=== PATIENT | male | born 1935 | race Hispanic/Latino ===

== ENCOUNTER 2016-11-01 10:27 | Outpatient (CLI) | payer MEDICARE, OTHER ==
--- NOTE | 2016-11-02 08:07 | Vascular Lab Report ---
LOWER EXTREMITY VENOUS DUPLEX: REASON FOR EXAM: Pain of the lower extremities. COMMENTS ON THE RIGHT: All veins visualized are freely compressible without evidence of internal echogenicity. Flow is spontaneous and phasic throughout. COMMENTS ON THE LEFT: All veins visualized are freely compressible without evidence of internal echogenicity. Flow is spontaneous and phasic throughout. IMPRESSION: No evidence of acute or chronic deep venous thrombosis in either lower extremity.
== END 2016-11-01 10:28 | disposition home or self-care (01) ==
LOC: VAS 10:27
PROVIDERS: ATTEND Specialist
DX: I73.9 Peripheral vascular disease, unspecified (principal)
CPT/HCPCS: 93970

== ENCOUNTER 2019-09-26 14:12 | Outpatient (CLI) | payer MEDICARE, OTHER ==
--- NOTE | 2019-09-26 16:09 | XRay Report ---
ABDOMEN 3 views, 09/26/2019 INDICATION: DIARRHEA FINDINGS: The bowel gas pattern is within normal limits. There are no dilated loops of large or small bowel. No free air is identified. No radiopaque urinary tract calculi are seen. There is mild linear atelectas is or scar in the left lung base. Surgical clips are noted in the right upper quadrant characteristic of prior cholecystectomy. IMPRESSION: No acute findings. Signer Name: Ashu Sinclair MD Signed: 09/26/2019 4:05 PM Workstation Name: [id number]
== END 2019-09-26 14:13 | disposition home or self-care (01) ==
LOC: SPVIMAG 14:12
PROVIDERS: ATTEND Internal Medicine
DX: R19.7 Diarrhea, unspecified (principal); J98.11 Atelectasis
CPT/HCPCS: 74022

== ENCOUNTER 2021-03-26 12:26 | Inpatient (IN) | payer MEDICARE, OTHER ==
[~2021-03-26 12:26] MED LIST: HEPARIN 10,000 UNITS/10 ML VIAL ONE
[2021-03-26] MEDS ORDERED: SODIUM CHLORIDE 0.9% 1000 ML 1,000 ML IV ONE ×3 (12:29→17:15)
[2021-03-26] MEDS ORDERED: ASPIRIN 81 MG TAB CHEW PO ONE (12:29)
[2021-03-26] MEDS ORDERED: MIDAZOLAM 2 MG/2 ML INJ ONE (12:35)
[2021-03-26] MEDS ORDERED: HEPARIN 10,000 UNITS/10 ML VIAL ONE (12:35)
[2021-03-26] MEDS ORDERED: HEPARIN/NS 5000 UNIT/500ML 0 ML IR ONE (12:35)
[2021-03-26] MEDS ORDERED: VERAPAMIL 5 MG/2 ML INJ ONE (12:36)
[2021-03-26] MEDS ORDERED: LIDOCAINE (2%) 20 MG/1 ML VIAL 20 ML MDV INFILTRATI ONE (12:36)
[2021-03-26] MEDS ORDERED: fentaNYL 100 MCG/2 ML INJ ONE (12:36)
[2021-03-26] MEDS ORDERED: NITROGLYCERIN SYRINGE 0 ML ONE (12:36)
[2021-03-26] MEDS ORDERED: ACETAMINOPHEN 325 MG TAB PO ONE (12:41)
[2021-03-26] MEDS ORDERED: NITROGLYCERIN 2% OINT 1 GM TP ONE (12:41)
[2021-03-26 12:48] LABS: Basophils # (Auto) 0.1 K/mm3 (0.0-0.1); Basophils % (Auto) 0.6 % (0.0-1.8); Eosinophils # (Auto) 0.1 K/mm3 (0.0-0.4); Eosinophils % (Auto) 0.6 % (0.0-4.3); Hematocrit 43.4 % (35.5-45.6); Hemoglobin 14.1 gm/dl (11.8-15.2); Lymphocytes # (Auto) 2.2 K/mm3 (1.2-5.4); Lymphocytes % (Auto) 11.8 % (13.4-35.0); Mean Corpuscular HGB Conc 33 % (32-34); Mean Corpuscular Volume 86 fl (84-94); Monocytes # (Auto) 1.6 K/mm3 (0.0-0.8); Monocytes % (Auto) 8.3 % (0.0-7.3); Platelet Count 263 K/mm3 (140-440); Red Blood Count 5.07 M/mm3 (3.65-5.03); Red Cell Distribution Width 16.6 % (13.2-15.2)
[2021-03-26] MEDS ORDERED: HEPARIN 10,000 UNITS/10 ML VIAL IV ONE (13:00)
--- NOTE | 2021-03-26 13:07 | XRay Report ---
CHEST 1 VIEW INDICATION: chest pain. COMPARISON: Abdominal series 09/26/2019 FINDINGS: Support devices: Pacemaker device remains in similar position. Heart: There is borderline to mild cardiomegaly which appears to be new. Lungs/Pleura: No acute air space or interstitial disease. No pneumothorax. Additional findings: None. IMPRESSION: Borderline heart size. Lungs clear. Signer Name: Tima Gleason Jr, MD Signed: 03/26/2021 1:03 PM Workstation Name: [id number]
[2021-03-26 13:09] LABS: INR 1.2 (0.87-1.13)
[2021-03-26 13:10] LABS: Partial Thromboplastin Time 34.7 Sec. (24.2-36.6)
[2021-03-26 13:15] LABS: BUN/Creatinine Ratio 15; Blood Urea Nitrogen 15 mg/dL (9-20); Calcium 8.4 mg/dL (8.4-10.2)
[2021-03-26 13:16] LABS: Hemolysis Index 16
[2021-03-26] MEDS ORDERED: KETOROLAC 30 MG/1 ML INJ IV ONE (13:23)
[2021-03-26] MEDS ORDERED: FAMOTIDINE 20 MG/2 ML INJ IV ONE (13:23)
--- NOTE | 2021-03-26 15:00 | Cat Scan Report ---
CTA CHEST WITH CONTRAST INDICATION / CLINICAL INFORMATION: elevated ddimer, chest pain OMNI 350 100 ML. TECHNIQUE: Axial CT images were obtained through the chest after injection of IV contrast. 3 plane KS P and/or 3D reconstructions were produced. All CT scans at this location are performed using CT dose reduction for ALARA by means of automated exposure control. COMPARISON: None available. FINDINGS: PULMONARY ARTERIES: No pulmonary emboli. The main pulmonary artery is dilated at 3.1 cm. THORACIC AORTA: Mild atherosclerotic calcification without acute abnormality. HEART: Cardiomegaly. There is reflux of contrast into the intrahepatic IVC and hepatic veins. Pacemak er leads are present. CORONARY ARTERY CALCIFICATION: Moderate. MEDIASTINUM / TAMIE: No significant abnormality. PLEURA: No pleural effusion. No pneumothorax. LUNGS: There is mild bronchiectasis and peribronchial thickening in the lower lobes. Bibasilar ground glass opacities. ADDITIONAL FINDINGS: None. UPPER ABDOMEN: Cholecystectomy changes. Bilateral renal cysts. Fatty atrophy of the pancreas. SKELETAL STRUCTURES: No significant osseous abnormality. IMPRESSION: 1. No CT evidence for pulmonary embolism. 2. Dilated main pulmonary artery with reflux of contrast into the intrahepatic IVC and hepatic veins is suggestive of right heart failure. 3. Bibasilar groundglass opacities with peribronchial thickening and bronchiectasis suggestive of chr onic aspiration-related changes. Signer Name: Marshall Brown MD Signed: 03/26/2021 2:56 PM Workstation Name: [email or web address]
[2021-03-26] MEDS ORDERED: AZITHROMYCIN/NS 500 MG/250 ML 500 MG/250 ML BAG IV ONE (15:07)
[2021-03-26] MEDS ORDERED: cefTRIAXone/NS 2 GM/100 ML 2 GM/100 ML BAG IV ONE (15:07)
--- NOTE | 2021-03-26 15:59 | Emergency Department Report ---
ED Chest Pain HPI - General Chief Complaint: Chest Pain Stated Complaint: STEMI Time Seen by Provider: 03/26/21 12:27 Source: patient Mode of arrival: Stretcher Limitations: No Limitations - History of Present Illness Initial Comments: Patient is a 85-year-old male with a past medical history of coronary disease status post several stents and pacemaker placement who is presenting with chest pain. Pain is apparently started approximately 1100 this morning. Patient states the pain is gradually worsened to the point where on arrival paramedics stated all he will do that now is just yell and pain. Patient has probable dementia and is a poor historian. At times throughout his stay he will stop yelling and communicate with us. He states that he feels some nausea but has not vomited mild shortness of breath. Pain has been constant this morning. Is unknown whether the patient has had cough congestion fevers chills or if the patient has received the COVID-19 vaccine. Severity scale (0 -10): 0 - Related Data Home Medications Medication Instructions Recorded Confirmed Last Taken Prednisone [predniSONE 5 mg (6-Day 5 mg PO QDAY 04/18/13 04/18/13 05/09/13 09:00 Pack, 21 Tabs)] allopurinoL [Zyloprim] 100 mg PO QDAY 04/18/13 04/18/13 05/09/13 09:00 Cholecalciferol (Vitamin D3) 1,000 unit PO DAILY 05/09/13 05/09/13 05/09/13 09:00 [Vitamin D] Multivitamin [Multi Vitamin Daily] 05/09/13 05/09/13 05/09/13 09:00 [place]-3 Fatty Acids/Fish Oil [Fish 05/09/13 05/09/13 05/09/13 09:00 Oil] carvediloL [Coreg] 6.25 mg PO BID 05/09/13 05/09/13 05/09/13 09:00 6.25 Previous Rx's Medication Instructions Recorded Last Taken Type Aspirin EC [Halfprin EC] 325 mg PO QDAY 30 Days tablet. 04/21/13 05/09/13 09:00 Rx Clopidogrel [Plavix] 75 mg PO QDAY 30 Days tablet 04/21/13 05/09/13 09:00 Rx lisinopriL [Zestril TAB] 10 mg PO QDAY #30 tablet 04/24/13 05/09/13 09:00 Rx Allergies Allergy/AdvReac Type Severity Reaction Status Date / Time lactose Allergy Nausea Unverified 11/01/16 10:29 Ryxejmf-Ict-Nha Reductase Allergy Unknown Unverified 05/09/13 12:36 Inhibitor Heart Score - HEART Score History: Moderately suspicious EKG: Significant ST-depression Age: > 65 Risk factors: > 3 risk factors or hx of atherosclerotic disease Troponin: < normal limit HEART Score: 7 - EKG Read Time Time EKG Completed: 12:32 EKG Read Time: 12:35 ED Review of Systems ROS: Stated complaint: STEMI Other details as noted in HPI Comment: All other systems reviewed and negative ED Past Medical Hx - Past Medical History Hx Hypertension: Yes (2003) Hx Heart Attack/AMI: Yes Hx Diabetes: No Hx Arthritis: Yes Hx Asthma: No Hx COPD: No Additional medical history: PMR, stent (2003), gout - Surgical History Hx Coronary Stent: Yes (2003) Hx Cholecystectomy: Yes Hx Appendectomy: Yes Additional Surgical History: tonsillectomy - Social History Smoking Status: Former Smoker - Medications Home Medications: Home Medications Medication Instructions Recorded Confirmed Last Taken Type Prednisone [predniSONE 5 mg (6-Day 5 mg PO QDAY 04/18/13 04/18/13 05/09/13 09:00 History Pack, 21 Tabs)] allopurinoL [Zyloprim] 100 mg PO QDAY 04/18/13 04/18/13 05/09/13 09:00 History Aspirin EC [Halfprin EC] 325 mg PO QDAY 30 Days tablet. 04/21/13 05/09/13 09:00 Rx Clopidogrel [Plavix] 75 mg PO QDAY 30 Days tablet 04/21/13 05/09/13 09:00 Rx lisinopriL [Zestril TAB] 10 mg PO QDAY #30 tablet 04/24/13 05/09/13 09:00 Rx Cholecalciferol (Vitamin D3) 1,000 unit PO DAILY 05/09/13 05/09/13 05/09/13 09:00 History [Vitamin D] Multivitamin [Multi Vitamin Daily] 05/09/13 05/09/13 05/09/13 09:00 History [place]-3 Fatty Acids/Fish Oil [Fish 05/09/13 05/09/13 05/09/13 09:00 History Oil] carvediloL [Coreg] 6.25 mg PO BID 05/09/13 05/09/13 05/09/13 09:00 History 6.25 ED Physical Exam - General Limitations: No Limitations General appearance: alert, in no apparent distress - Head Head exam: Present: atraumatic, normocephalic - Eye Eye exam: Present: normal appearance, PERRL, EOMI - ENT ENT exam: Present: mucous membranes moist - Neck Neck exam: Present: normal inspection - Respiratory Respiratory exam: Present: normal lung sounds bilaterally. Absent: respiratory distress, wheezes, rales, rhonchi - Cardiovascular Cardiovascular Exam: Present: regular rate, normal rhythm, normal heart sounds. Absent: systolic murmur, diastolic murmur, rubs, gallop - GI/Abdominal GI/Abdominal exam: Present: soft, normal bowel sounds. Absent: distended, tenderness, guarding, rebound, rigid - Rectal Rectal exam: Present: deferred - Extremities Exam Extremities exam: Present: normal inspection - Back Exam Back exam: Present: normal inspection - Neurological Exam Neurological exam: Present: alert, altered - Psychiatric Psychiatric exam: Present: normal affect, normal mood - Skin Skin exam: Present: warm, dry, intact, normal color. Absent: rash ED Course Vital Signs 03/26/21 03/26/21 03/26/21 12:36 12:45 13:00 Pulse Rate 72 Respiratory 11 L Rate Blood Pressure 107/67 107/67 O2 Sat by Pulse 98 98 97 Oximetry 03/26/21 03/26/21 03/26/21 13:15 13:30 13:36 Pulse Rate 70 71 76 Respiratory 27 H 18 11 L Rate Blood Pressure 117/67 117/67 114/70 O2 Sat by Pulse 98 98 99 Oximetry 03/26/21 03/26/21 03/26/21 13:38 13:40 13:42 Pulse Rate 78 74 70 Respiratory 12 10 L 11 L Rate Blood Pressure 114/70 114/70 114/70 O2 Sat by Pulse 98 99 99 Oximetry 03/26/21 03/26/21 03/26/21 13:44 13:46 13:48 Pulse Rate 71 72 70 Respiratory 14 11 L 8 L Rate Blood Pressure 114/70 114/70 97/55 O2 Sat by Pulse 99 100 98 Oximetry 03/26/21 03/26/21 03/26/21 13:50 13:52 13:54 Pulse Rate 70 75 70 Respiratory 12 15 9 L Rate Blood Pressure 97/55 97/55 97/55 O2 Sat by Pulse 96 96 97 Oximetry 03/26/21 03/26/21 03/26/21 13:56 13:57 13:58 Pulse Rate 70 70 70 Respiratory 16 12 10 L Rate Blood Pressure 97/55 102/60 102/60 O2 Sat by Pulse 96 98 99 Oximetry 03/26/21 03/26/21 03/26/21 14:00 14:02 14:04 Pulse Rate 70 70 71 Respiratory 10 L 12 14 Rate Blood Pressure 102/60 103/66 103/66 O2 Sat by Pulse 98 99 Oximetry 03/26/21 03/26/21 03/26/21 14:24 14:26 14:28 Pulse Rate 78 73 71 Respiratory 19 15 26 H Rate Blood Pressure 103/66 103/66 103/66 O2 Sat by Pulse 96 99 100 Oximetry 03/26/21 03/26/21 03/26/21 14:30 14:32 14:34 Pulse Rate 73 70 70 Respiratory 22 32 H 27 H Rate Blood Pressure 103/66 81/50 81/50 O2 Sat by Pulse 100 100 100 Oximetry 03/26/21 03/26/21 03/26/21 14:35 14:39 14:41 Pulse Rate 70 70 70 Respiratory 19 28 H 14 Rate Blood Pressure 114/70 96/62 96/62 O2 Sat by Pulse 97 100 99 Oximetry 03/26/21 03/26/21 03/26/21 14:43 14:45 14:47 Pulse Rate 70 70 70 Respiratory 26 H 14 12 Rate Blood Pressure 96/62 81/50 81/50 O2 Sat by Pulse 97 99 97 Oximetry 03/26/21 03/26/21 03/26/21 14:49 14:51 14:53 Pulse Rate 70 70 70 Respiratory 13 18 15 Rate Blood Pressure 81/50 81/50 97/61 O2 Sat by Pulse 100 87 99 Oximetry 03/26/21 03/26/21 03/26/21 14:55 14:57 14:59 Pulse Rate 70 70 68 Respiratory 15 19 9 L Rate Blood Pressure 97/61 97/61 97/61 O2 Sat by Pulse 98 99 Oximetry 03/26/21 03/26/21 03/26/21 15:01 15:03 15:05 Pulse Rate 70 70 70 Respiratory 6 L 8 L 24 Rate Blood Pressure 97/61 97/61 97/61 O2 Sat by Pulse 100 100 99 Oximetry 03/26/21 03/26/21 03/26/21 15:07 15:08 15:09 Pulse Rate 70 70 70 Respiratory 15 26 H 22 Rate Blood Pressure 97/61 93/60 93/60 O2 Sat by Pulse 99 100 100 Oximetry 03/26/21 03/26/21 03/26/21 15:11 15:13 15:14 Pulse Rate 70 70 70 Respiratory 23 12 14 Rate Blood Pressure 93/60 93/60 102/67 O2 Sat by Pulse 100 100 99 Oximetry RACHEL score - Rachel Score Age > 65: (1) Yes Aspirin use within the Past 7 Days: (1) Yes 3 or more CAD Risk Factors: (1) Yes 2 or more Angina events in past 24 hrs: (1) Yes Known CAD with more than 50% Stenosis: (1) Yes Elevated Cardiac Markers: (0) No ST Deviation Greater than 0.5mm: (1) Yes RACHEL Score: 6 ED Medical Decision Making - Lab Data Result diagrams: 03/26/21 12:29 03/26/21 15:42 Lab Results 03/26/21 03/26/21 03/26/21 Range/Units 12:29 12:29 12:29 WBC 18.6 H (4.5-11.0) K/mm3 RBC 5.07 H (3.65-5.03) M/mm3 Hgb 14.1 (11.8-15.2) gm/dl Hct 43.4 (35.5-45.6) % MCV 86 (84-94) fl MCH 28 (28-32) pg MCHC 33 (32-34) % RDW 16.6 H (13.2-15.2) % Plt Count 263 (140-440) K/mm3 Lymph % (Auto) 11.8 L (13.4-35.0) % [place] % (Auto) 8.3 H (0.0-7.3) % Eos % (Auto) 0.6 (0.0-4.3) % Baso % (Auto) 0.6 (0.0-1.8) % Lymph # (Auto) 2.2 (1.2-5.4) K/mm3 [place] # (Auto) 1.6 H (0.0-0.8) K/mm3 Eos # (Auto) 0.1 (0.0-0.4) K/mm3 Baso # (Auto) 0.1 (0.0-0.1) K/mm3 Seg Neutrophils % 78.7 H (40.0-70.0) % Seg Neutrophils # 14.7 H (1.8-7.7) K/mm3 PT 15.8 H (12.2-14.9) Sec. INR 1.20 H (0.87-1.13) APTT 34.7 (24.2-36.6) Sec. D-Dimer 560.90 H (0-234) ng/mlDDU Sodium 140 (137-145) mmol/L Potassium 3.5 L (3.6-5.0) mmol/L Chloride 107.9 H (98-107) mmol/L Carbon Dioxide 16 L (22-30) mmol/L Anion Gap 20 mmol/L BUN 15 (9-20) mg/dL Creatinine 1.0 (0.8-1.3) mg/dL Estimated GFR > 60 ml/min BUN/Creatinine Ratio 15 % Glucose 167 H (75-100) mg/dL Calcium 8.4 (8.4-10.2) mg/dL Total Creatine Kinase < 7 L (55-170) units/L CK-MB (CK-2) 3.0 (0.0-4.0) ng/mL CK-MB (CK-2) Rel Index 0.0 (0-4) Troponin T 0.024 (0.00-0.029) ng/mL Blood Type Antibody Screen 03/26/21 Range/Units 12:34 WBC (4.5-11.0) K/mm3 RBC (3.65-5.03) M/mm3 Hgb (11.8-15.2) gm/dl Hct (35.5-45.6) % MCV (84-94) fl MCH (28-32) pg MCHC (32-34) % RDW (13.2-15.2) % Plt Count (140-440) K/mm3 Lymph % (Auto) (13.4-35.0) % [place] % (Auto) (0.0-7.3) % Eos % (Auto) (0.0-4.3) % Baso % (Auto) (0.0-1.8) % Lymph # (Auto) (1.2-5.4) K/mm3 [place] # (Auto) (0.0-0.8) K/mm3 Eos # (Auto) (0.0-0.4) K/mm3 Baso # (Auto) (0.0-0.1) K/mm3 Seg Neutrophils % (40.0-70.0) % Seg Neutrophils # (1.8-7.7) K/mm3 PT (12.2-14.9) Sec. INR (0.87-1.13) APTT (24.2-36.6) Sec. D-Dimer (0-234) ng/mlDDU Sodium (137-145) mmol/L Potassium (3.6-5.0) mmol/L Chloride (98-107) mmol/L Carbon Dioxide (22-30) mmol/L Anion Gap mmol/L BUN (9-20) mg/dL Creatinine (0.8-1.3) mg/dL Estimated GFR ml/min BUN/Creatinine Ratio % Glucose (75-100) mg/dL Calcium (8.4-10.2) mg/dL Total Creatine Kinase (55-170) units/L CK-MB (CK-2) (0.0-4.0) ng/mL CK-MB (CK-2) Rel Index (0-4) Troponin T (0.00-0.029) ng/mL Blood Type O POSITIVE Antibody Screen Negative - EKG Data -: EKG Interpreted by Ma - EKG Data 03/26/21 15:57 EKG shows a ventricularly paced rhythm with a rate of 72. [place] is normal intervals otherwise normal. Patient with ST elevation inferior lateral leads. ST depression in leads I and aVL is a left bundle branch block pattern. Time interpretation at 1235. EKG was sent to [facility] [employer] [employer] and they stated that this was a paced rhythm and did not want to activate the Sales Engineer. - Radiology Data CTA CHEST WITH CONTRAST INDICATION / CLINICAL INFORMATION: elevated ddimer, chest pain OMNI 350 100 ML. TECHNIQUE: Axial CT images were obtained through the chest after injection of IV contrast. 3 plane MIP and/or 3D reconstructions were produced. All CT scans at this location are performed using CT dose reduction for ALARA by means of automated exposure control. COMPARISON: None available. FINDINGS: PULMONARY ARTERIES: No pulmonary emboli. The main pulmonary artery is dilated at 3.1 cm. THORACIC AORTA: Mild atherosclerotic calcification without acute abnormality. HEART: Cardiomegaly. There is reflux of contrast into the intrahepatic IVC and hepatic veins. Pacemaker leads are present. CORONARY ARTERY CALCIFICATION: Moderate. MEDIASTINUM / TAMIE: No significant abnormality. PLEURA: No pleural effusion. No pneumothorax. LUNGS: There is mild bronchiectasis and peribronchial thickening in the lower lobes. Bibasilar groundglass opacities. ADDITIONAL FINDINGS: None. UPPER ABDOMEN: Cholecystectomy changes. Bilateral renal cysts. Fatty atrophy of the pancreas. SKELETAL STRUCTURES: No significant osseous abnormality. IMPRESSION: 1. No CT evidence for pulmonary embolism. 2. Dilated main pulmonary artery with reflux of contrast into the intrahepatic IVC and hepatic veins is suggestive of right heart failure. 3. Bibasilar groundglass opacities with peribronchial thickening and bronchiectasis suggestive of chronic aspiration-related changes. Signer Name: Marshall Brown MD Signed: 03/26/2021 2:56 PM Workstation Name: [email or web address] - Medical Decision Making Patient is 85-year-old male with a past medical history of coronary disease with multiple MIs and multiple stents as well as history of CVA is also on Coumadin who is presenting with chest pain. Patient is a poor historian. The patient is able to relate that he has had pain since 11 AM but otherwise is mostly just moaning in the room. According to the patient's son he was vaccinated for COVID-19. First troponin was normal however the second troponin did elevate. D-dimer is elevated the patient had a CTA which showed no evidence of PE or aortic dissection. There was groundglass opacities in bilateral bases. Patient could have a early pneumonia present. Patient started on Rocephin and azithromycin. Lactic acid was elevated to 5. Is started on IV fluids. IV fluids were given slow secondary to the patient having a history of congestive heart failure with a EF of 40%. Covid test will be performed. Patient will be admitted to the hospital for further management. Critical Care Time: Yes (30) Critical care attestation.: If time is entered above; I have spent that time in minutes in the direct care of this critically ill patient, excluding procedure time. ED Disposition Clinical Impression: Chest pain, NSTEMI (non-ST elevated myocardial infarction), Pneumonia, Suspected COVID-19 virus infection Disposition: ADMITTED INPATIENT Is pt being admited?: Yes Does the pt Need Aspirin: No Condition: Stable Instructions: Bacterial Pneumonia (ED) Time of Disposition: 17:17
[2021-03-26 16:31] LABS: Creatine Kinase MB 17.1 ng/mL (0.0-4.0)
[2021-03-26 16:32] LABS: C-Reactive Protein 1.6 mg/dL (0.00-1.30)
[2021-03-26 17:01] LABS: Chol/HDL Ratio 6.72 %
[2021-03-26] MEDS ORDERED: oxyCODONE /ACETAMINOPHEN 5-325MG TAB PO PRN (18:22)
[2021-03-26] MEDS ORDERED: ACETAMINOPHEN 325 MG TAB PO PRN (18:22)
[2021-03-26] MEDS ORDERED: HYDROmorphone 1 MG/1 ML INJ IV PRN (18:22)
[2021-03-26] MEDS ORDERED: ONDANSETRON 4 MG/2 ML INJ IV PRN (18:22)
--- NOTE | 2021-03-26 18:26 | History and Physical Report ---
History of Present Illness Date of examination: 03/26/21 Date of admission: 03/26/21 Chief complaint: 85-year-old male with a past medical history of coronary artery disease and status post several stents and pacemaker placement comes in for chest pain. Started approximately around 11 AM. Patient is also short of breath. Came by EMS. Patient also has some dementia and is a poor historian. Patient was confused at the time of admission. Patient has nausea and some shortness of breath. Patient is not received his COVID-19 vaccine. No fever or chills. Extensive cardiac history with stents. Son is a rn placement.- Heart Score - HEART Score History: Moderately suspicious EKG: Significant ST-depression Age: > 65 Risk factors: > 3 risk factors or hx of atherosclerotic disease Troponin: < normal limit HEART Score: 7 - EKG Read Time Time EKG Completed: 12:32 EKG Read Time: 12:35 - Past Medical History Hx Hypertension: Yes (2003) Hx Heart Attack/AMI: Yes Arthritis Additional medical history: PMR, stent (2003), gout - Surgical History Hx Coronary Stent: Yes (2003) Hx Cholecystectomy: Yes Hx Appendectomy: Yes Additional Surgical History: tonsillectomy - Social History Smoking Status: Former Smoker Family history Htn - Medications Home Medications: Home Medications Medication Instructions Recorded Confirmed Last Taken Type Prednisone [predniSONE 5 mg (6-Day 5 mg PO QDAY 04/18/13 04/18/13 05/09/13 09:00 History Pack, 21 Tabs)] allopurinoL [Zyloprim] 100 mg PO QDAY 04/18/13 04/18/13 05/09/13 09:00 History Aspirin EC [Halfprin EC] 325 mg PO QDAY 30 Days tablet. 04/21/13 05/09/13 09:00 Rx Clopidogrel [Plavix] 75 mg PO QDAY 30 Days tablet 04/21/13 05/09/13 09:00 Rx lisinopriL [Zestril TAB] 10 mg PO QDAY #30 tablet 04/24/13 05/09/13 09:00 Rx Cholecalciferol (Vitamin D3) 1,000 unit PO DAILY 05/09/13 05/09/13 05/09/13 09:00 History [Vitamin D] Multivitamin [Multi Vitamin Daily] 05/09/13 05/09/13 05/09/13 09:00 History [place]-3 Fatty Acids/Fish Oil [Fish 05/09/13 05/09/13 05/09/13 09:00 History Oil] carvediloL [Coreg] 6.25 mg PO BID 05/09/13 05/09/13 05/09/13 09:00 History 6.25 Review of Systems ROS: Constitutional confused HEENT no sore throat no post nasal drip no diplopia Neck no neck stiffness no lymph gland enlargement Chest and lungs no shortness of breath cough or wheezing CVS chest pain and shortness of breath GI no nausea no vomiting no diarrhea Genitourinary system no dysuria no flank pain Musculoskeletal system no muscle pains no joint pains [employer]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 Pain is apparently started approximately 1100 this morning. Patient states the pain is gradually worsened to the point where on arrival paramedics stated all he will do that now is just yell and pain. Patient has probable dementia and is a poor historian. At times throughout his stay he will stop yelling and communicate with us. He states that he feels some nausea but has not vomited mild shortness of breath. Pain has been constant this morning. Is unknown whether the patient has had cough congestion fevers chills or if the patient has received the COVID-19 vaccine. Severity scale (0 -10): 0 - Related Data Home Medications Medication Instructions Recorded Confirmed Last Taken Prednisone [predniSONE 5 mg (6-Day 5 mg PO QDAY 04/18/13 04/18/13 05/09/13 09:00 Pack, 21 Tabs)] allopurinoL [Zyloprim] 100 mg PO QDAY 04/18/13 04/18/13 05/09/13 09:00 Cholecalciferol (Vitamin D3) 1,000 unit PO DAILY 05/09/13 05/09/13 05/09/13 09:00 [Vitamin D] Multivitamin [Multi Vitamin Daily] 05/09/13 05/09/13 05/09/13 09:00 [place]-3 Fatty Acids/Fish Oil [Fish 05/09/13 05/09/13 05/09/13 09:00 Oil] carvediloL [Coreg] 6.25 mg PO BID 05/09/13 05/09/13 05/09/13 09:00 6.25 Previous Rx's Medication Instructions Recorded Last Taken Type Aspirin EC [Halfprin EC] 325 mg PO QDAY 30 Days tablet. 04/21/13 05/09/13 09:00 Rx Clopidogrel [Plavix] 75 mg PO QDAY 30 Days tablet 04/21/13 05/09/13 09:00 Rx lisinopriL [Zestril TAB] 10 mg PO QDAY #30 tablet 04/24/13 05/09/13 09:00 Rx Allergies Allergy/AdvReac Type Severity Reaction Status Date / Time lactose Allergy Nausea Unverified 11/01/16 10:29 Pnelfco-Vnp-Isw Reductase Allergy Unknown Unverified 05/09/13 12:36 Inhibitor Heart Score - HEART Score History: Moderately suspicious EKG: Significant ST-depression Age: > 65 Risk factors: > 3 risk factors or hx of atherosclerotic disease Troponin: < normal limit HEART Score: 7 - EKG Read Time Time EKG Completed: 12:32 EKG Read Time: 12:35 ED Review of Systems ROS: Stated complaint: STEMI Other details as noted in HPI Comment: All other systems reviewed and negative ED Past Medical Hx - Past Medical History Hx Hypertension: Yes (2003) Hx Heart Attack/AMI: Yes Hx Diabetes: No Hx Arthritis: Yes Hx Asthma: No Hx COPD: No Additional medical history: PMR, stent (2003), gout - Surgical History Hx Coronary Stent: Yes (2003) Hx Cholecystectomy: Yes Hx Appendectomy: Yes Additional Surgical History: tonsillectomy - Social History Smoking Status: Former Smoker - Medications Home Medications: Home Medications Medication Instructions Recorded Confirmed Last Taken Type Prednisone [predniSONE 5 mg (6-Day 5 mg PO QDAY 04/18/13 04/18/13 05/09/13 09:00 History Pack, 21 Tabs)] allopurinoL [Zyloprim] 100 mg PO QDAY 04/18/13 04/18/13 05/09/13 09:00 History Aspirin EC [Halfprin EC] 325 mg PO QDAY 30 Days tablet. 04/21/13 05/09/13 09:00 Rx Clopidogrel [Plavix] 75 mg PO QDAY 30 Days tablet 04/21/13 05/09/13 09:00 Rx lisinopriL [Zestril TAB] 10 mg PO QDAY #30 tablet 04/24/13 05/09/13 09:00 Rx Cholecalciferol (Vitamin D3) 1,000 unit PO DAILY 05/09/13 05/09/13 05/09/13 09:00 History [Vitamin D] Multivitamin [Multi Vitamin Daily] 05/09/13 05/09/13 05/09/13 09:00 History [place]-3 Fatty Acids/Fish Oil [Fish 05/09/13 05/09/13 05/09/13 09:00 History Oil] carvediloL [Coreg] 6.25 mg PO BID 05/09/13 05/09/13 05/09/13 09:00 History 6.25 Medications and Allergies Allergies Allergy/AdvReac Type Severity Reaction Status Date / Time lactose Allergy Nausea Unverified 11/01/16 10:29 Xppgdul-Izl-Msh Reductase Allergy Unknown Unverified 05/09/13 12:36 Inhibitor Home Medications Medication Instructions Recorded Confirmed Last Taken Type Prednisone [predniSONE 5 mg (6-Day 5 mg PO QDAY 04/18/13 04/18/13 05/09/13 09:00 History Pack, 21 Tabs)] allopurinoL [Zyloprim] 100 mg PO QDAY 04/18/13 04/18/13 05/09/13 09:00 History Aspirin EC [Halfprin EC] 325 mg PO QDAY 30 Days tablet. 04/21/13 05/09/13 09:00 Rx Clopidogrel [Plavix] 75 mg PO QDAY 30 Days tablet 04/21/13 05/09/13 09:00 Rx lisinopriL [Zestril TAB] 10 mg PO QDAY #30 tablet 04/24/13 05/09/13 09:00 Rx Cholecalciferol (Vitamin D3) 1,000 unit PO DAILY 05/09/13 05/09/13 05/09/13 09:00 History [Vitamin D] Multivitamin [Multi Vitamin Daily] 05/09/13 05/09/13 05/09/13 09:00 History [place]-3 Fatty Acids/Fish Oil [Fish 05/09/13 05/09/13 05/09/13 09:00 History Oil] carvediloL [Coreg] 6.25 mg PO BID 05/09/13 05/09/13 05/09/13 09:00 History 6.25 Exam - Constitutional Vitals: Temp Pulse Resp BP Pulse Ox 70 22 93/60 97 03/26/21 17:40 03/26/21 17:40 03/26/21 17:40 03/26/21 17:40 General appearance: Present: severe distress, well-nourished - EENT Eyes: Present: PERRL ENT: hearing intact, clear oral mucosa - Neck Neck: Present: supple, normal ROM - Respiratory Respiratory effort: normal Respiratory: bilateral: CTA, rhonchi - Cardiovascular Heart rate: 70 Rhythm: regular Heart Sounds: Present: S1 & S2. Absent: rub, click - Extremities Extremities: pulses symmetrical, No edema Peripheral Pulses: within normal limits - Abdominal General gastrointestinal: Present: soft, non-tender, non-distended, normal bowel sounds Male genitourinary: Present: normal - Integumentary Integumentary: Present: clear, warm, dry - Musculoskeletal Musculoskeletal: gait normal, strength equal bilaterally - Psychiatric Psychiatric: appropriate mood/affect, intact judgment & insight - Neurologic Neurologic: CNII-XII intact, moves all extremities HEART Score - HEART Score EKG: Significant ST-depression Age: > 65 Risk factors: > 3 risk factors or hx of atherosclerotic disease Troponin: Troponin T 0.169 ng/mL (0.00-0.029) H* D 03/26/21 15:42 Troponin: < normal limit Results - Labs CBC & Chem 7: 03/26/21 12:29 03/26/21 15:42 Labs: Laboratory Last Values WBC 18.6 K/mm3 (4.5-11.0) H 03/26/21 12:29 RBC 5.07 M/mm3 (3.65-5.03) H 03/26/21 12:29 Hgb 14.1 gm/dl (11.8-15.2) 03/26/21 12:29 Hct 43.4 % (35.5-45.6) 03/26/21 12:29 MCV 86 fl (84-94) 03/26/21 12:29 MCH 28 pg (28-32) 03/26/21 12:29 MCHC 33 % (32-34) 03/26/21 12:29 RDW 16.6 % (13.2-15.2) H 03/26/21 12:29 Plt Count 263 K/mm3 (140-440) 03/26/21 12: Lymph % (Auto) 11.8 % (13.4-35.0) L 03/26/21 12: [place] % (Auto) 8.3 % (0.0-7.3) H 03/26/21 12: Eos % (Auto) 0.6 % (0.0-4.3) 03/26/21 12: Baso % (Auto) 0.6 % (0.0-1.8) 03/26/21 12: Lymph # (Auto) 2.2 K/mm3 (1.2-5.4) 03/26/21 12: [place] # (Auto) 1.6 K/mm3 (0.0-0.8) H 03/26/21 12: Eos # (Auto) 0.1 K/mm3 (0.0-0.4) 03/26/21 12: Baso # (Auto) 0.1 K/mm3 (0.0-0.1) 03/26/21 12: Seg Neutrophils % 78.7 % (40.0-70.0) H 03/26/21 12: Seg Neutrophils # 14.7 K/mm3 (1.8-7.7) H 03/26/21 12: PT 15.8 Sec. (12.2-14.9) H 03/26/21 12: INR 1.20 (0.87-1.13) H 03/26/21 12: APTT 34.7 Sec. (24.2-36.6) 03/26/21 12: D-Dimer 560.90 ng/mlDDU (0-234) H 03/26/21 12:29 Sodium 140 mmol/L (137-145) 03/26/21 12: Potassium 3.5 mmol/L (3.6-5.0) L 03/26/21 12: Chloride 107.9 mmol/L (98-107) H 03/26/21 12: Carbon Dioxide 16 mmol/L (22-30) L 03/26/21 12:29 Anion Gap 20 mmol/L 03/26/21 12:29 BUN 15 mg/dL (9-20) 03/26/21 12:29 Creatinine 1.0 mg/dL (0.8-1.3) 03/26/21 12:29 Estimated GFR > 60 ml/min 03/26/21 12:29 BUN/Creatinine Ratio 15 % 03/26/21 12:29 Glucose 189 mg/dL (75-100) H 03/26/21 15:42 Lactic Acid 5.00 mmol/L (0.7-2.0) H* 03/26/21 15:42 Calcium 8.4 mg/dL (8.4-10.2) 03/26/21 12:29 Ferritin 607.8 ng/mL (30.0-300.0) H 03/26/21 15:42 Lactate Dehydrogenase 382 units/L (91-180) H 03/26/21 15:42 Total Creatine Kinase 171 units/L (55-170) H 03/26/21 15:42 CK-MB (CK-2) 17.1 ng/mL (0.0-4.0) H 03/26/21 15:42 CK-MB (CK-2) Rel Index 10.0 (0-4) H 03/26/21 15:42 Troponin T 0.169 ng/mL (0.00-0.029) H* D 03/26/21 15:42 C-Reactive Protein 1.60 mg/dL (0.00-1.30) H 03/26/21 15:42 Triglycerides 190 mg/dL (2-149) H 03/26/21 15:42 Cholesterol 168 mg/dL (50-199) 03/26/21 15:42 LDL Cholesterol Direct 128 mg/dL (50-130) 03/26/21 15:42 HDL Cholesterol 25 mg/dL (40-59) L 03/26/21 15:42 Cholesterol/HDL Ratio 6.72 % 03/26/21 15:42 Blood Type O POSITIVE 03/26/21 12:34 Antibody Screen Negative 03/26/21 12:34 Short CBC 03/26/21 Range/Units 12:29 WBC 18.6 H (4.5-11.0) K/mm3 Hgb 14.1 (11.8-15.2) gm/dl Hct 43.4 (35.5-45.6) % Plt Count 263 (140-440) K/mm3 BMP 03/26/21 03/26/21 12:29 15:42 Sodium 140 Potassium 3.5 L Chloride 107.9 H Carbon Dioxide 16 L BUN 15 Creatinine 1.0 Glucose 167 H 189 H Calcium 8.4 Cardiac Enzymes 03/26/21 03/26/21 Range/Units 12:29 15:42 Total Creatine Kinase < 7 L 171 H (55-170) units/L CK-MB (CK-2) 3.0 17.1 H (0.0-4.0) ng/mL Troponin T 0.024 0.169 H* D (0.00-0.029) ng/mL - Imaging and Cardiology EKG: report reviewed (ST elevations in anterior leads,, patient) Imaging and Cardiology: Chest x-ray The lungs are clear No CT evidence for pulmonary embolism Dilated main pulmonary artery with reflux of contrast into the intrahepatic IVC and hepatic veins suggestive of right heart failure. Bibasilar groundglass opacities with peribronchial thickening and bronchiectasis suggestive of chronic aspiration related changes chest CTA Assessment and Plan Assessment and plan: Critical care statement The high probability OF a clinically significant sudden or life-threatening deterioration of the cardiorespiratory system and endocrine system required my full and direct attention, intervention and postoperative management. The aggregate critical care time was 40 minutes. The time is in addition to time spent performing reported procedures but includes the followin: Data review and interpretation 2: Patient assessment and monitoring of vital signs 3: Documentation 4:: Medication orders statement management Advance Directives: Yes (Sleep mood) VTE prophylaxis?: Chemical Plan of care discussed with patient/family: Yes - Patient Problems (1) NSTEMI (non-ST elevated myocardial infarction) Status: Acute Plan to address problem: Patient initiated on IV drip Cardiology consulted Not a candidate for cardiac cath (2) Suspected COVID-19 virus infection Status: Acute Plan to address problem: Coronavirus PCR in a.m. (3) Hypertension Status: Chronic Qualifiers: Hypertension type: primary hypertension Qualified Code(s): I10 - Essential (primary) hypertension Plan to address problem: Patient is hypotensive now (4) Pneumonia Status: Acute Plan to address problem: Possible Covid (5) Coronary artery disease Status: Chronic Qualifiers: Coronary Disease-Associated Artery/Lesion type: unspecified vessel or lesion type Plan to address problem: Multiple stents Cardiology consulted Not a candidate for cardiac cath (6) DVT prophylaxis Status: Acute Plan to address problem: On Lovenox and GI prophylaxis (7) Discharge planning issues Status: Acute Plan to address problem: Discussed with family DNR and hospice and DO NOT INTUBATE
[2021-03-26] MEDS ORDERED: NORepinephrine/NS 4 MG-250 ML 4 MG/250 ML BAG IV ONE (18:33)
[2021-03-26] MEDS ORDERED: CLOPIDOGREL 75 MG TAB PO SCH (19:00)
[2021-03-26] MEDS ORDERED: ENOXAPARIN 30 MG/0.3 ML INJ SUB-Q SCH (19:00)
--- NOTE | 2021-03-26 19:12 | XRay Report ---
. XR chest 1V ap INDICATION / CLINICAL INFORMATION: s/p intubation. COMPARISON: Radiograph from earlier same day. FINDINGS: SUPPORT DEVICES: Endotracheal tube projects in expected position in the mid trachea. Enteric catheter terminates below the diaphragm, out of the [id number]. Biventricular left-sided cardiac pacemaker is unchanged. HEART /PULMONARY VASCULATURE: Unchanged. LUNGS / PLEURA: Unchanged left basilar airspace opacity. No sizable pleural effusion. No pneumothorax . IMPRESSION: Satisfactory position of endotracheal tube. Otherwise stable chest. Signer Name: Jose Antonio Nam MD Signed: 03/26/2021 7:08 PM Workstation Name: [id number]
[2021-03-26] MEDS ORDERED: MIDAZOLAM 2 MG/2 ML INJ IV PRN (19:23)
[2021-03-26] MEDS ORDERED: CALCIUM CHLORIDE 1,000 MG/10 ML SYRINGE IV ONE (19:55)
[2021-03-26] MEDS ORDERED: SODIUM BICARB 8.4% 50 MEQ/50 ML SYRINGE IV ONE (19:55)
[2021-03-26] MEDS ORDERED: EPINEPHrine 1 MG/10 ML SYRINGE ONE (19:55)
[2021-03-26] MEDS ORDERED: LISINOPRIL 10 MG TAB PO SCH (20:00)
[2021-03-26] MEDS ORDERED: MIDAZOLAM 100 MG in SODIUM CHLORIDE 0.9% 80 ML IV SCH (20:00)
[2021-03-26] MEDS ORDERED: allopurinoL 100 MG TAB PO SCH (20:00)
[2021-03-26] MEDS ORDERED: HEPARIN 10,000 UNITS/10 ML VIAL IV PRN (20:12)
--- NOTE | 2021-03-26 20:16 | Event Note ---
Date: 03/26/21 Called to bedside by RN for CODE BLUE. She reports patient was in asystole. Chest compressions started immediately. Patient given 1 amp of epi. He received 1 round of ACLS. With pulse check, patient had ROSC. Hospitalist, Dr Vasquez, notified.
[2021-03-26] MEDS ORDERED: HEPARIN/ 0.45% NACL DRIP 25,000 UNIT/500 ML BAG IV SCH (21:00)
[2021-03-26] MEDS ORDERED: carvediloL 6.25 MG TAB PO SCH (22:00)
[2021-03-26] MEDS ORDERED: FAMOTIDINE 20 MG/2 ML INJ IV SCH (22:00)
[2021-03-26 23:22] VITALS: BP 62/44
--- NOTE | 2021-03-27 08:28 | Death Summary ---
Summary - Providers Date of service: 03/26/21 Attending: ABBIE INGRAM - summary Date of admission: 03/26/21 18:23 Date of : 03/26/21 Reason for admission: NSTEMI and Covid infection Procedures/treatments rendered: ACLS protocol was initiated x3 on the fourth attempt patient could not be revived Disposition: Cause of cardiorespiratory failure secondary to coronary artery disease and code 19 infection Time of expiration is 2018 hrs. - Final diagnosis (1) NSTEMI (non-ST elevated myocardial infarction) Note: Final diagnosis: (2) Suspected COVID-19 virus infection Note: Final diagnosis: (3) Hypertension Qualifiers: Hypertension type: primary hypertension Qualified Code(s): I10 - Essential (primary) hypertension Note: Final diagnosis: (4) Pneumonia Note: Final diagnosis: (5) Coronary artery disease Qualifiers: Coronary Disease-Associated Artery/Lesion type: unspecified vessel or lesion type Note: Final diagnosis: (6) DVT prophylaxis Note: Final diagnosis: (7) Discharge planning issues Note: Final diagnosis:
[2021-03-27] MEDS ORDERED: CHOLECALCIFEROL (VIT D3) 1000 UNIT (25 mcg) TAB PO SCH (10:00)
[2021-03-27] MEDS ORDERED: ASPIRIN 325 MG TAB PO SCH (10:00)
--- NOTE | 2021-03-29 10:51 | Electrocardiograph Report ---
[facility] Test Date: 2021-03-26 Test Time: 12:32:15 Pat Name: DIONNE ZENG Department: Room: [place] [address] Gender: M [employer] Supervisor: TRELL : 1935 Requested By: KARL GAN Order Number: [id number] Reading MD: Adan Soriano Measurements Intervals [place] Rate: 72 P: 137 [place]: 97 QRS: 0 QRSD: 79 T: 113 QT: 315 QTc: 345 Interpretive Statements Atrial sensed Ventricular-paced rhythm,probably biventricular. No previous ECG available for comparison Electronically Signed On 03-29-2021 10:51:17 EDT by Adan Soriano
--- NOTE | 2021-03-31 17:16 | Electrocardiograph Report ---
[facility] Test Date: 2021-03-26 Test Time: 18:42:34 Pat Name: DIONNE ZENG Department: Room: [place] [address] Gender: M [address] Justice: TRELL : 1935 Requested By: KARL GAN Order Number: [id number] Reading MD: Adan Soriano Measurements Intervals [place] Rate: 75 P: 0 [place]: 41 QRS: -29 QRSD: 157 T: 74 QT: 376 QTc: 420 Interpretive Statements Ventricular-paced rhythm Compared to ECG 03/26/2021 12:32:15 No significant changes Electronically Signed On 03-31-2021 17:16:34 EDT by Adan Soriano
== END 2021-03-26 22:00 ==
LOC: ED 12:26 → 3A 18:23 → CC1 20:15
PROVIDERS: ADMIT Internal Medicine; ATTEND Internal Medicine
PROC: 0BH17EZ Insertion of Endotracheal Airway into Trachea, Via Natural or Artificial Opening (ICD-10-PCS; principal; 2021-03-26)
PROC: 5A1935Z Respiratory Ventilation, Less than 24 Consecutive Hours (ICD-10-PCS; 2021-03-26)
PROC: 5A12012 Performance of Cardiac Output, Single, Manual (ICD-10-PCS; 2021-03-26)
DX: I21.4 Non-ST elevation (NSTEMI) myocardial infarction (principal); J18.9 Pneumonia, unspecified organism; U07.1 COVID-19; I46.9 Cardiac arrest, cause unspecified; Z20.822 Contact with and (suspected) exposure to COVID-19; M10.9 Gout, unspecified; I25.10 Atherosclerotic heart disease of native coronary artery without angina pectoris; I10 Essential (primary) hypertension; Z90.49 Acquired absence of other specified parts of digestive tract; Z95.0 Presence of cardiac pacemaker; Z79.899 Other long term (current) drug therapy; I25.2 Old myocardial infarction; Z95.5 Presence of coronary angioplasty implant and graft; Z87.891 Personal history of nicotine dependence; Z88.8 Allergy status to other drugs, medicaments and biological substances; Z88.6 Allergy status to analgesic agent; Z91.011 Allergy to milk products; Z91.013 Allergy to seafood; Z88.1 Allergy status to other antibiotic agents
CPT/HCPCS: 36415; 71045; 71275; 80048; 80061; 82140; 82550; 82553; 82728; 82947; 82962; 83615; 84145; 84484; 85025; 85379; 85610; 85730; 86140; 86850; 86900; 86901; 87040; 93005; 94002; G0378; J0171; J0456; J0696; J1644; J1885; J2250; J3010; J7030; Q9967